=== PATIENT | male | born 1940 | race Caucasian/White ===

== ENCOUNTER 2017-10-05 13:10 | Outpatient (CLI) | payer MEDICARE, BC | END 2017-10-05 13:11 | disposition home or self-care (01) | LOC: BICCT 13:10 | PROVIDERS: ATTEND Internal Medicine Cardiovascular Disease | DX: Z91.81 History of falling (principal) | CPT/HCPCS: 70450 ==

== ENCOUNTER 2018-10-06 18:29 | Emergency (ER) | payer MEDICARE, BC ==
[2018-10-06 19:48] LABS: #Basophils 0.1 thou/uL (0.0-0.2); #Eosinphils 0.1 thou/uL (0.0-0.7); #Lymphocytes 1.6 thou/uL (1.20-3.40); #Monocytes 0.7 thou/uL (0.11-0.59); #Neutrophils 4.1 thou/uL (1.40-6.50); %Basophils 0.8 % (0.0-1.0); %Eosinophils 1.4 % (0.0-10.0); %Lymphocytes 24.8 % (21.0-51.0); %Monocytes 10.3 % (0.0-10.0); %Neutrophils 62.7 % (42.0-75.0); Hemoglobin 13.2 g/dL (14.0-18.0); Mean Corpuscular HGB CONC 33.2 g/dL (32.0-36.0); Mean Corpuscular Volume 93.3 fL (78.0-98.0); Mean Platelet Volume 7.3 fL (7.4-10.4); Platelet Count 193 thou/uL (130-400); RBC Distribution Width 12.8 % (11.5-14.5); Red Blood Cell (RBC) Count 4.24 mill/uL (4.70-6.10); White Blood Cell (WBC) Count 6.5 thou/uL (4.8-10.8)
--- NOTE | 2018-10-06 19:49 | RAD ---
AP VIEW CHEST: 10/06/18 HISTORY: Fall. AP view chest is obtained. The lungs are well aerated. No evidence of active intrathoracic disease seen. No evidence of effusion s, pneumonia or pneumothorax seen. Mild cardiomegaly seen. IMPRESSION: No evidence of acute intrathoracic abnormality seen. POS: [facility]
[2018-10-06 19:54] LABS: PTT 33.4 SEC (22.9-36.1)
--- NOTE | 2018-10-06 19:59 | RAD ---
AP VIEW PELVIS: 10/06/18 HISTORY: Fall. Hematoma to the left hip. AP view pelvis is obtained. The patient has had bilateral hip arthroplasties. No evidence of acute fractures, subluxations, or bony lesions seen. IMPRESSION: No evidence of acute pelvic fractures. POS: [facility]
--- NOTE | 2018-10-06 20:01 | CT ---
CT CERVICAL SPINE 10/06/18 HISTORY: Fall. Axial images are obtained with coronal and sagittal reconstructions. Images demonstrate extensive changes of spondylosis at C3-4, C4-5, C5-6 and C6-7. There is loss of th e normal lordotic curvature of the cervical spine at the C4 level. No evidence of acute cervical spine fracture seen. Extensive vascular calcifications seen. Heterogeneity is seen in the thyroid lobes compatible with thyroid lesions. Correlate with elective thyroid evaluation. The odontoid is unremarkable. IMPRESSION: Changes of spondylosis without evidence of acute cervical spine pathology seen. POS: [facility]
--- NOTE | 2018-10-06 20:06 | CT ---
BRAIN CT WITHOUT IV CONTRAST: 10/06/18 HISTORY: Head injury from a trip and fall. Patient is on blood thinners. COMPARISON: 05/13/08. FINDINGS: There is some bilateral atrophy and chronic white matter ischemic changes. There is some old infarct changes, encephalomalacia in the left posterior frontal and left occipitoparietal regions, evidence f or old infarct or other old insults. Minimal increased density within the sella, prior MRI demonstra lin a small pituitary mass. No focal mass or midline shift. No intra or extra-axial hemorrhage. Moder ate sinus mucosal changes within the right maxillary sinus with a probable air fluid level. IMPRESSION: Atrophy and chronic white matter ischemic changes. Old left sided infarct changes. Evidence for small pituitary mass with no significant change from prior MRI. Right maxillary sinus mucosal disease and probable air fluid level. No acute hemorrhage. POS: [facility]
--- NOTE | 2018-10-06 20:07 | RAD ---
TWO VIEWS LEFT HIP: 10/06/18 HISTORY: Fall. Left hip pain. AP and frogleg views left hip is obtained. No evidence of left hip fractures, subluxations or bony lesions seen. there does appear to be some so ft tissue swelling lateral to the left hip compatible with lateral hip and proximal femoral region he matoma. IMPRESSION: Soft tissue hematoma without evidence of acute fracture seen. POS: [facility]
[2018-10-06 20:16] LABS: ALT (SGPT) 15 U/L (8-55); AST (SGOT) 21 U/L (5-34); Albumin 4.2 g/dL (3.4-4.8); Alkaline Phosphatase 136 U/L (40-150); Anion Gap 9 mmol/L (10-20); BUN (Urea Nitrogen) 24 mg/dL (8.4-25.7); Bilirubin, Total 1.1 mg/dL (0.2-1.2); CK (CPK) 54 U/L (30-200); Calc. Creatinine Clearance 0 mL/min (70-130); Calcium 10.2 mg/dL (7.8-10.44); Carbon Dioxide 34 mmol/L (23-31); Chloride 101 mmol/L (98-107); Estimated GFR-MDRD 66; Globulin 2.8 g/dL (2.4-3.5); Glucose 107 mg/dL (83-110); Sodium 140 mmol/L (136-145)
== END 2018-10-06 20:55 | disposition home or self-care (01) ==
LOC: ERS 18:29
DX: S70.02XA Contusion of left hip, initial encounter (principal); G20 Parkinson's disease; I48.91 Unspecified atrial fibrillation; I25.2 Old myocardial infarction; Z86.73 Personal history of transient ischemic attack (TIA), and cerebral infarction without residual deficits; E78.5 Hyperlipidemia, unspecified; I10 Essential (primary) hypertension; Z79.899 Other long term (current) drug therapy; Z79.01 Long term (current) use of anticoagulants; W19.XXXA Unspecified fall, initial encounter
CPT/HCPCS: 70450; 71045; 72125; 72170; 80053; 82550; 84484; 85025; 85610; 85730; 93005

== ENCOUNTER 2018-11-24 14:07 | Emergency (ER) | payer MEDICARE, BC ==
--- NOTE | 2018-11-24 15:15 | CT ---
Exam: Head CT without contrast HISTORY: Fall, 30 minutes prior to arrival. Scalp laceration. Loss of consciousness. COMPARISON: 10/06/2018 FINDINGS: Hemorrhage: No intraparenchymal hemorrhage or extra-axial hematoma. Brain parenchyma: Stable atrophy. Stable chronic small vessel ischemic changes of the white matter. S table loss of brown-white matter differentiation and volume loss in the left occipital lobe. Stable malacic changes in the left temporal lobe. Ventricular system: Ventricles and sulci are patent and symmetric. Calvarium: Left scalp hematoma with subcutaneous air compatible with laceration. Underlying calvarium is intact. Sinuses and mastoid air cells: Persistent opacification of the right maxillary sinus. IMPRESSION: 1. No intracranial posttraumatic sequelae 2. Left scalp post traumatic changes. 3. Age-appropriate atrophy. Stable malacic changes in the left cerebrum. Stable chronic small vessel ischemic changes.
[2018-11-24] MEDS ORDERED: Adacel (T-DAP) 0.5 ML SYRINGE ONE (15:28)
== END 2018-11-24 16:48 | disposition home or self-care (01) ==
LOC: ERS 14:07
DX: S06.9X1A Unspecified intracranial injury with loss of consciousness of 30 minutes or less, initial encounter (principal); S01.01XA Laceration without foreign body of scalp, initial encounter; G20 Parkinson's disease; G30.9 Alzheimer's disease, unspecified; F02.80 Dementia in other diseases classified elsewhere, unspecified severity, without behavioral disturbance, psychotic disturbance, mood disturbance, and anxiety; I48.91 Unspecified atrial fibrillation; I25.2 Old myocardial infarction; Z86.73 Personal history of transient ischemic attack (TIA), and cerebral infarction without residual deficits; E78.5 Hyperlipidemia, unspecified; I10 Essential (primary) hypertension; Z79.899 Other long term (current) drug therapy; Z79.82 Long term (current) use of aspirin; Z79.01 Long term (current) use of anticoagulants; W19.XXXA Unspecified fall, initial encounter
CPT/HCPCS: 70450; 90715; 93005

== ENCOUNTER 2018-11-25 15:06 | Inpatient (IN) | payer MEDICARE, BC ==
[2018-11-25] MEDS ORDERED: Lidocaine 1% w/Epinephrine 1:100K 20 ML VIAL ONE (15:22)
[2018-11-25 16:35] LABS: #Lymphocytes 1.3 thou/uL (1.20-3.40); #Monocytes 0.8 thou/uL (0.11-0.59); %Basophils 0.6 % (0.0-1.0); %Eosinophils 0.6 % (0.0-10.0); %Lymphocytes 16.2 % (21.0-51.0); %Monocytes 9.1 % (0.0-10.0); %Neutrophils 73.5 % (42.0-75.0); Hemoglobin 13.7 g/dL (14.0-18.0); Mean Corpuscular HGB CONC 33.2 g/dL (32.0-36.0); Mean Corpuscular Hemoglobin 31.3 pg (27.0-31.0); Mean Corpuscular Volume 94.3 fL (78.0-98.0); Mean Platelet Volume 7.2 fL (7.4-10.4); Platelet Count 190 thou/uL (130-400); RBC Distribution Width 12.6 % (11.5-14.5); Red Blood Cell (RBC) Count 4.38 mill/uL (4.70-6.10); White Blood Cell (WBC) Count 8.2 thou/uL (4.8-10.8)
--- NOTE | 2018-11-25 16:57 | RAD ---
Portable frontal chest radiograph: 11/25/2018 COMPARISON: 10/06/2018 HISTORY: Fall, trauma, pain, altered mental status FINDINGS: Lungs are clear. Heart and mediastinal contours appear within normal limits. There is tortu osity of the descending thoracic aorta. There is degenerative change within the imaged thoracic spine. IMPRESSION: No acute findings.
[2018-11-25 17:00] LABS: ALT (SGPT) 14 U/L (8-55); AST (SGOT) 26 U/L (5-34); Albumin 4.2 g/dL (3.4-4.8); Alkaline Phosphatase 119 U/L (40-150); Anion Gap 14 mmol/L (10-20); BUN (Urea Nitrogen) 17 mg/dL (8.4-25.7); Bilirubin, Total 1.6 mg/dL (0.2-1.2); CK (CPK) 157 U/L (30-200); Calc. Creatinine Clearance 0 mL/min (70-130); Carbon Dioxide 27 mmol/L (23-31); Chloride 102 mmol/L (98-107); Estimated GFR-MDRD 80; Globulin 2.9 g/dL (2.4-3.5); Glucose 96 mg/dL (83-110); Lipase 37 U/L (8-78); Potassium 3.8 mmol/L (3.5-5.1); Protein, Total 7.1 g/dL (5.8-8.1); Sodium 139 mmol/L (136-145)
[2018-11-25 18:50] LABS: Bilirubin Negative (Negative); Blood, Urine Large (Negative); Clarity CLEAR (Clear); Glucose, Urine (Dipstick) Negative (Negative); Leukocyte Trace (Negative); Nitrite Negative (Negative); Protein, Urine (Dipstick) Negative (Neg-Trace); Specific Gravity, Urine 1.018 (1.002-1.036)
[2018-11-25 18:53] LABS: Bacteria/HPF None Seen HPF (None Seen); Hyaline Casts/LPF 0-3 HYALINE CAST LPF (0-3 Hyaline); RBC/HPF GREATER THAN 50-TNTC HPF (0-3); Squamous Epithelial None Seen HPF (0-3); WBC/HPF 0-3 HPF (0-3)
--- NOTE | 2018-11-25 19:51 | CT ---
Head CT without contrast 11/25/2018: COMPARISON: 11/24/2018 HISTORY: Injury, trauma, pain TECHNIQUE: Axial CT imaging at 5 mm intervals from vertex through skull base without contrast FINDINGS: There has been interval development of a subdural hematoma. This includes a midline compone nt within the interhemispheric fissure measuring 8 mm in greatest transverse dimension and 10 cm in AP dimension. There is also a component on the left, involving the left frontal and left temporal reg ion, measuring up to 7 mm in transverse dimension. There is associated left to right midline shift measuring approximately 5 mm. There is atherosclerotic calcification of the cavernous carotid arteries and the distal vertebral art eries. No acute osseous abnormality. Partially imaged right maxillary sinus demonstrates mucosal thickening. There is diffuse scalp swelli ng with multifocal cutaneous feroz. IMPRESSION: Acute subdural hematoma demonstrating a midline and left frontotemporal location with ass ociated left to right midline shift measuring 5 mm. Ranjana Hahn made aware at 7:48 PM 11/25/2018 Code CR
[2018-11-25] MEDS ORDERED: niCARdipine HCl 25 MG in Sodium Chloride 0.9% 250 ML 240 ML IVPB PRN (19:55)
--- NOTE | 2018-11-25 20:41 | CT ---
CT cervical spine without contrast: 11/25/2018 HISTORY: Fall, trauma, pain TECHNIQUE: Axial CT imaging at 2.5 mm intervals through the cervical spine without contrast. Coronal and sagittal reformatted imaging obtained. FINDINGS: Imaged lung apices appear unremarkable. The occipital condyles, the dens, the C1-2 articulation, craniocervical junction, the atlantoaxial in terspace, and the cervicothoracic junction demonstrate no acute findings. There is degenerative reversal of the normal cervical lordosis. Prominent degenerative endplate changes are present at mult iple levels within the cervical spine, most prominent at C4-5 and C5-6. Prominent multilevel bilateral facet and uncovertebral osteophyte formation. No prevertebral soft tissue swelling. No disp laced fracture or dislocation. Abnormal lobulated appearance of the thyroid gland with multiple hypodense nodules noted, incompletel y assessed on this exam. Follow-up thyroid ultrasound suggested. IMPRESSION: Prominent cervical spine degenerative change. No acute fracture or dislocation.
[2018-11-25] MEDS: cefTRIAXone\\ROCEPHIN 1 GM in Sodium Chloride 0.9% 100 ML IVPB SCH (20:45)
--- NOTE | 2018-11-25 21:02 | HP ---
CHIEF COMPLAINT: Fall. HISTORY OF PRESENT ILLNESS: This is a 78-year-old male with history of Parkinson disease, Alzheimer's dementia, hypertension, atrial fibrillation on low-dose aspirin, history of stroke, who presents to the emergency room for the second time in 2 days secondary to fall. All history is obtained from the patient's . She reports that over the past 4 days that he has been falling more often. He had a fall yesterday around 2:00 p.m., was brought here and required feroz to fix up a scalp laceration. With a negative CT, they were discharged to home. She reports normal activity last night, sleeping and eating, no change in his usual routine. Around 2:00 p.m. today with using his walker, he had another fall and hit the back of his head. They re-presented to the emergency room, lacerations were repaired again with feroz. The patient's denies any prior history of significant change in his balance or strength. She notes a change of the carbidopa levodopa six weeks ago, it was decreased to b.i.d. to see if this would help reduce the advancement of the Alzheimer disease. She did not notice any difference in terms of his function. She reports the last visit to the [facility] was on 11/14, he had a slow and steady gait, did not demonstrate any weakness. The clinic did request an MRI which has not been scheduled. She notes today gross hematuria that is new after the fall, the patient complaining of pressure around his eyes and headache here. At home she denies any fevers, chills, nausea, vomiting, abdominal pain, or any other change from his usual routine. The patient does have a history of atrial fibrillation and in mid October was discontinued from Coumadin secondary to gait instability. This decision was made in conjunction with his cracker off, Dr. Denis. He does remain on a low-dose aspirin. In the emergency room, the patient complained of headahe and repeat CT was performed - significant for a subdural hematoma with 5 mm midline shift, hypertension with systolic pressures in the 170s - started on a Cardene drip, and transferred to the ICU. ALLERGIES: SYNTHETIC PENICILLINS. CURRENT MEDICATIONS: Reconciled with the list provided by the patient's . 1. Memantine 14 mg daily. 2. Rivastigmine 1.5 mg b.i.d. 3. Lisinopril/hydrochlorothiazide 10/12.5 alternating one tablet every other day and half a tablet every other day. 4. Metoprolol tartrate 100 mg b.i.d. 5. Gabapentin 300 mg b.i.d. 6. Atorvastatin 40 mg daily. 7. Carbidopa/levodopa 25/100 one b.i.d. 8. AREDS2 vitamin daily. 9. Aspirin 81 mg daily. 10. Multivitamin daily. PAST MEDICAL HISTORY: 1. Parkinson disease. 2. Alzheimer disease. 3. Atrial fibrillation, on rate controller and low-dose aspirin. 4. History of LA. 5. History of stroke. 6. Hypertension. 7. Dyslipidemia. PAST SURGICAL HISTORY: 1. Bilateral hip replacements. 2. Left clavicle fracture. 3. Right knee surgery, unknown type. SOCIAL HISTORY: The patient lives with his who is his full-time caregiver and his medical power of litigation attorney, phone #[phone], she does report he is a full code. He would not want prolonged interventions, but would want initial resuscitation efforts. FAMILY HISTORY: Significant for father who of cancer and a mother who of diabetes. REVIEW OF SYSTEMS: Only notable from his for hematuria. All remaining review of systems are unobtainable from the patient. PHYSICAL EXAMINATION: VITAL SIGNS: Blood pressure 142/82, that was an hour ago, most recent was 170s/110s, pulse 64, respirations 16, sats are 100% on room air. Temp 98.2. GENERAL: He is awake, alert, follows commands. Answers few questions. He is not in apparent distress. HEENT: Pupils are equal, round, and reactive to light. His oral mucosa is pink and moist. NECK: Supple, nontender. LYMPHATICS: No palpable cervical or supraclavicular lymphadenopathy. LUNGS: Clear to auscultation. No audible wheezing, rhonchi, or rales. HEART: Normal S1, S2. Irregularly irregular. No audible murmurs. ABDOMEN: Soft, present bowel sounds. Nontender, nondistended. EXTREMITIES: No clubbing, cyanosis, or edema. SKIN: He does have scalp lacerations that have been repaired with feroz. No active bleeding. Left elbow abrasion. NEUROLOGIC: He follows commands. His cranial nerves appear intact. No focal deficits noted. He is moving arms and legs equally. PSYCH: Appears euthymic LABORATORY DATA: Labs reviewed. Today, CBC; 8.2, 13.7, 41.3, 190. Chemistry 139, 3.8, 102, 27, 17, 0.9, 296. T bilirubin 1.6, AST 26, ALT 14, alkaline phosphatase 119, total protein 7.1, albumin 4.2. BNP 275. Troponin 0.019. Ammonia is 16. TSH 0.5281. Urine shows greater than 50 red blood cells, trace leuk esterase, large blood and trace ketones. EKG shows atrial fibrillation with a rate of 60, normal axis, normal QTc of 427, abnormal R-wave progression, no ST changes noted. CT of the brain shows an acute subdural hematoma with a midline and left frontotemporal location with [id number] midline shift measuring 5 mm. Chest x-ray is personally reviewed. No acute process. CT scan without contrast from 11/24 shows no intracranial posttraumatic sequela, left scalp posttraumatic changes, age-appropriate atrophy. IMPRESSION: 1. Subdural hematoma with midline shift secondary to fall. 2. Atrial fibrillation, on low-dose aspirin. 3. Hematuria with possible urinary tract infection. 4. Hypertension, uncontrolled. 5. Parkinson disease, unknown control. 6. Alzheimer's dementia in the context of prior stroke. 7. Scalp lacerations, now repaired, and elbow abrasion. 8. Dyslipidemia. PLAN: 1. Neurosurgery consultation, start Cardene drip with a goal of systolic pressure less than 150, obtain C-spine of the neck now and repeat CT in the morning. 2. We will initiate Rocephin for concern of UTI in the context of hematuria and consult Urology. Obtain urine culture and place Banks catheter. 3. We will continue his medications for Parkinson disease. 4. We will continue his metoprolol for rate control. Monitor his blood pressure. We will hold the lisinopril/hydrochlorothiazide for because of the Cardene drip. 5. We will continue the gabapentin and statin. 6. We will discontinue the aspirin due to bleeding - both hematuria and subdural hematoma. 7. N.p.o. for now. IV fluid hydration, monitoring neurologic status per protocol. 8. DVT prophylaxis, SCDs. 9. GI prophylaxis not indicated, will initiate if prolonged n.p.o. 10. Code status is full. Surrogate decision maker is the patient's . 11. The patient is at high risk given age comorbidities and current presentation. 12. Reviewed the plan of care with the patient's . No questions or further needs at the end of evaluation. Job ID: [id number] MTDD
[2018-11-25] MEDS ORDERED: Ondansetron ODT 4 MG TAB SL PRN (21:59)
[2018-11-25] MEDS ORDERED: Ondansetron PF 4 MG/2 ML Vial IVP PRN (21:59)
[2018-11-25 22:48] LABS: INR-International Normal Ratio 1.1; PTT 28.5 SEC (22.9-36.1); Prothrombin Time 14.7 SEC (12.0-14.7)
[2018-11-25] MEDS: Sodium Chloride 0.9% 1,000 ML IV SCH (22:59)
[2018-11-25] MEDS: Metoprolol Tartrate 100 MG TAB PO SCH (23:00)
[2018-11-25] MEDS: Gabapentin 300 MG CAP PO SCH (23:01)
[2018-11-25] MEDS: Carbidopa/Levodopa 25-100 mg Tablet PO SCH (23:01)
[2018-11-25] MEDS: Atorvastatin Calcium 40 MG TAB PO SCH (23:01)
--- NOTE | 2018-11-26 00:49 | CON ---
DATE OF CONSULTATION: 11/25/2018 This is Ricky Pichardo PA-C dictating a report for Jackson Burch MD. This is a 50-minute initial patient evaluation of which greater than 50% of the exam was spent counseling and coordinating the patient's care. Remainder of the exam was spent in review of the patient's medical records and formulation of treatment plan, as well as review of appropriate imaging studies. CHIEF COMPLAINT: Status post increased falls with fall seen in left frontotemporal subdural hematoma. HISTORY OF PRESENT ILLNESS: Mr. Hassan, who goes by "skip," presents for the above complaints with his family. The patient has a history of Parkinson's and Alzheimer disease and has had multiple falls over the past 4 days. has noticed overall generalized decline in the patient's cognition, as well as some weakness especially apparent over the last 4 days. Recently, his levodopa and carbidopa was changed by his primary care provider. There was concern of progression of his Alzheimer's. The patient was previously on Coumadin, but was taken off roughly 2 to 3 weeks ago by his . He has a history of MS in 1999 without stents, CVA in 2009, and atrial fibrillation. Currently, he is only blood thinner, 81 mg aspirin. The patient was actually seen in the ER yesterday and head CT was obtained that was negative. However, review of patient's head CT from today shows subdural hematoma along the falx with slight amount of midline shift, as well as a frontotemporal left-sided subdural hematoma without significant mass effect or causing any type of shift. The patient's cervical spine CT is negative for fracture. PHYSICAL EXAMINATION: The patient is awake, alert, and appropriate. He is confused, but appears to be at his neurologic baseline according to the patient's . His speech is clear and coherent. He is able to tell me that he believes the year is 2019 and he believes the day of the week is Tuesday. He is unable to tell me where he is. He is able to correctly identify a pen and define its purpose, but is unable to define the definition of an island. He follows commands equally in all 4 extremities and appears to have good strength in all the extremities. He has no complaints of neck pain nor any tenderness to palpation of the cervical spine. His pupils are equal, round, and reactive bilaterally. IMPRESSION AND DIAGNOSIS: Status post multiple falls on 81 mg aspirin, previously on Coumadin with small fall seen and left subdural hematoma. PLAN: At this time, our medical colleagues have admitted the patient as the patient also has urinary tract infection, which may also be contributing to some of the delirium as well as increased falls. From a neurosurgical standpoint, the patient does require surgery, however, would like him to be n.p.o. at this time. We will plan to repeat his head CT in the morning, sooner should symptoms dictate. I would like his systolic blood pressure to remain less than 150. His head of bed elevated at 30 degrees. He should be on bed rest. We will order q.1 hour neuro checks. Should he be stable as well as his CT scan be stable, he will likely meet criteria for transition out of the ICU tomorrow. Nonetheless, we will follow up on his repeat scans and closely follow his neurologic exam. Please call with any changes or questions. Job ID: [id number]
--- NOTE | 2018-11-26 01:41 | CON ---
DATE OF CONSULTATION: 11/25/2018 REASON FOR CONSULTATION: Gross hematuria. Information obtained primarily from chart. The patient not able to provide reliable information and also from the ICU nurse. HISTORY OF PRESENT ILLNESS: Mr. Hassan is a 78-year-old gentleman admitted to the hospital for probable subdural hematoma. He has been having recent falls several times over the last several days. He has had two trips to the ER in the last three days as a result of falls. The most recent one has resulted in a subdural hematoma noted on CT scan. has also stated that he has some pink-tinged urine since his most recent fall. There is no prior urologic history. She did not give any prior history of stone disease or prostate problems. He does not have a catheter in place at this time. MEDICATIONS: Prior to admission, 1. Vitamins. 2. Aspirin. 3. Carbidopa/levodopa. 4. Atorvastatin. 5. Gabapentin. 6. Metoprolol. 7. Lisinopril/hydrochlorothiazide. 8. Rivastigmine. PAST MEDICAL HISTORY: 1. Parkinson disease. 2. Alzheimer disease. 3. Atrial fibrillation. 4. CVAs. 5. Hypertension. 6. Dyslipidemia. PAST SURGICAL HISTORY: Include, 1. Bilateral hip replacement. 2. Left clavicle fracture repair. 3. Right knee surgery. SOCIAL HISTORY: He lives at home and is cared for by his . FAMILY HISTORY: Noncontributory. REVIEW OF SYSTEMS: Not obtainable from the patient. PHYSICAL EXAMINATION: GENERAL: He is awake and alert. He is in no distress at this time. VITAL SIGNS: Most recent vital signs; blood pressure 128/97, pulse 76, respiratory rate 16, and O2 saturation 99%. CHEST: Clear to auscultation. CARDIOVASCULAR: Regular rate and rhythm. ABDOMEN: Soft, nontender. No palpable masses. Liver and spleen, not palpable. No abdominal tenderness noted. : No evidence of trauma. EXTREMITIES: No edema. LABORATORY DATA: Hemoglobin 13.7 and hematocrit 41.3. Urinalysis greater than 50 rbc's. Chemistry; creatinine is 0.92. IMPRESSION: Mr. Hassan is a 78-year-old gentleman, who has had multiple falls and recently developed some gross hematuria since a recent fall. He has no prior urologic history. He is not on significant anticoagulation at this time, only aspirin. He has not had any urinary tract imaging. We will obtain culture, cytology, and renal ultrasound. If the hematuria persists and cultures are negative, he will require endoscopic evaluation by cystoscopy. This can be done on an outpatient basis. Job ID: [id number] [facility]
[2018-11-26 06:17] LABS: #Eosinphils 0.1 thou/uL (0.0-0.7); #Lymphocytes 1.4 thou/uL (1.20-3.40); #Neutrophils 7.4 thou/uL (1.40-6.50); %Basophils 0.2 % (0.0-1.0); %Eosinophils 0.6 % (0.0-10.0); %Lymphocytes 13.9 % (21.0-51.0); %Neutrophils 75.2 % (42.0-75.0); Hemoglobin 12.3 g/dL (14.0-18.0); Mean Corpuscular HGB CONC 34.1 g/dL (32.0-36.0); Mean Corpuscular Hemoglobin 31.6 pg (27.0-31.0); Mean Corpuscular Volume 92.5 fL (78.0-98.0); Mean Platelet Volume 7.5 fL (7.4-10.4); Platelet Count 174 thou/uL (130-400); RBC Distribution Width 12.3 % (11.5-14.5); Red Blood Cell (RBC) Count 3.89 mill/uL (4.70-6.10); White Blood Cell (WBC) Count 9.8 thou/uL (4.8-10.8)
[2018-11-26 06:35] LABS: Anion Gap 10 mmol/L (10-20); BUN (Urea Nitrogen) 14 mg/dL (8.4-25.7); Calc. Creatinine Clearance 92 mL/min (70-130); Calcium 9.5 mg/dL (7.8-10.44); Carbon Dioxide 30 mmol/L (23-31); Chloride 100 mmol/L (98-107); Estimated GFR-MDRD Greater than 90; Glucose 110 mg/dL (83-110); Potassium 3.4 mmol/L (3.5-5.1); Sodium 137 mmol/L (136-145)
--- NOTE | 2018-11-26 08:01 | PDOC.PN ---
- Subjective Encounter Start Date: 11/26/18 (f/u subdural hematoma) Encounter Start Time: 07:59 Subjective: No overnight events, pt without complaints. Repeat -: CT scan performed this morning. Cardene turned off as bp's were -: within range - Objective Resuscitation Status - Order Detail: 11/25/18 19:55 Resuscitation Status Routine Resuscitation Status: FULL: Full Resuscitation Discussed with: patient's Vital Signs & Weight: Vital Signs (12 hours) Temp Pulse Ox 11/26/18 05:00 98.2 F 11/25/18 22:00 98.0 F 98 Weight Weight 161 lb 9.581 oz Most Recent Monitor Data Heart Rate from ECG 77 NIBP 131/86 NIBP BP-Mean 101 Respiration from ECG 17 SpO2 99 I&O: 11/25/18 11/26/18 11/27/18 06:59 06:59 06:59 Intake Total 558 Output Total 675 Balance -117 Result Diagrams: 11/26/18 05:43 11/26/18 05:43 EKG Reviewed by me: Yes (a fib 60-70's) Phys Exam - Physical Examination Constitutional: NAD Respiratory: no wheezing, no rales, no rhonchi, clear to auscultation bilateral Cardiovascular: no significant murmur, irregular Gastrointestinal: soft, non-tender, no distention, positive bowel sounds Musculoskeletal: no edema movement of arms and legs c/w yesterday's exam, slight left sided facial drooping Psychiatric: normal affect Dx/Plan (1) Subdural hematoma Code(s): S06.5X9A - TRAUM SUBDR HEM W LOC OF UNSP DURATION, INIT Status: Acute (2) Hypertension Code(s): I10 - ESSENTIAL (PRIMARY) HYPERTENSION Status: Chronic Qualifiers: Hypertension type: essential hypertension Qualified Code(s): I10 - Essential (primary) hypertension (3) Parkinsons disease Code(s): G20 - PARKINSON'S DISEASE Status: Chronic (4) UTI (urinary tract infection) Status: Acute Qualifiers: Urinary tract infection type: acute cystitis Hematuria presence: with hematuria Qualified Code(s): N30.01 - Acute cystitis with hematuria (5) Alzheimer disease Code(s): G30.9 - ALZHEIMER'S DISEASE, UNSPECIFIED; F02.80 - DEMENTIA IN OTH DISEASES CLASSD ELSWHR W/O BEHAVRL DISTURB Status: Acute Qualifiers: Alzheimer's disease onset: unspecified onset Dementia behavioral disturbance: with behavioral disturbance Qualified Code(s): G30.9 - Alzheimer' s disease, unspecified; F02.81 - Dementia in other diseases classified elsewhere with behavioral disturbance (6) Atrial fibrillation Code(s): I48.91 - UNSPECIFIED ATRIAL FIBRILLATION Status: Chronic (7) Anemia Code(s): D64.9 - ANEMIA, UNSPECIFIED Status: Acute - Plan * Hemodynamically normal - in ICU for close monitoring * Appreciate NS consult - repeat CT performed, pending read. Anticipate pt can be transferred to Stroke floor after cleared by NS * Appreciate Urology consult - renal US ordered, urine culture pending, and on Rocephin for possible UTI * Pt will require pt/ot/speech, and Neurology consult placed per hospital protocol with subdural hematoma * resume lisinopril, continue metoprolol. hold hctz - additional home med. * continue home memory/parkinsons meds * * anemia - mild and likely secondary to both gross hematuria and bleeding associated with 2 scalp lacerations (both repaired in ER - on and 25 November) * * dvt prophy - scd's * gi prophy - not indicated * code status full * * pt remains at high risk in current condition.
--- NOTE | 2018-11-26 08:12 | CT ---
HEAD CT NONCONTRAST: COMPARISON: Previous day. INDICATION: Intracranial hemorrhage, followup. FINDINGS: Left-sided subdural hematoma is stable at 6 mm in thickness. Subdural hematoma along the interhemisp heric falx is also stable at 7 mm. Evidence of bilateral scalp injury remains. Minimal hyperdensity extending along the tentorium cerebelli may relate to extension of a subdural hematoma. Mild volume of extraaxial hemorrhage overlying the anterior pole of the left temporal lobe is grossly stable. IMPRESSION: No significant interval change with regard to multifocal intracranial, extraaxial hemorrhage. The pr eviously described 4 mm of midline shift has reduced, approximately 2 mm, currently. POS: [facility]
[2018-11-26] MEDS ORDERED: Prevnar 13-Val Conj/PF 0.5 ML SYRINGE IM ONE (09:00)
[2018-11-26] MEDS: Gabapentin 300 MG CAP PO SCH ×2 (09:14→20:55)
[2018-11-26] MEDS: Metoprolol Tartrate 100 MG TAB PO SCH ×2 (09:14→20:55)
[2018-11-26] MEDS: Carbidopa/Levodopa 25-100 mg Tablet PO SCH ×2 (09:14→20:55)
[2018-11-26] MEDS: Lisinopril 10 MG TAB PO SCH (09:14)
--- NOTE | 2018-11-26 09:27 | CON ---
DATE OF CONSULTATION: HISTORY OF PRESENT ILLNESS: Samy Hassan is a 78-year-old gentleman demented, Parkinson's disease, multiple falls. He had an open laceration. said he fell yesterday. This has 4 feroz. At home again, lacerated, reopened, re-fell, large blood clot, he was brought to the ER. History is obtained from the 's information, who states that he has baseline dementia Parkinson's disease, hypertension. PAST SURGICAL HISTORY: Bilateral hip surgeries, left clavicle surgery, right knee surgery. MEDICATIONS: Include, 1. Coumadin 2.5. 2. Exelon 1.5. 3. Lopressor 100 twice a day. 4. Memantine two tablets. 5. Lisinopril. 6. Neurontin 300. 7. Levodopa-carbidopa. 8. Atrovent. 9. Lipitor. 10. Aspirin. ALLERGIES: PENICILLIN. REVIEW OF SYSTEMS: Pertinent for previous headache. CT scan showed old infarct plus some hemorrhage. Small pituitary mass. TOBACCO: None. ALCOHOL: None. SOCIAL AND FAMILY HISTORY: Unremarkable. PHYSICAL EXAMINATION: GENERAL: He is in no distress. He is on low-dose Cardene drip. VITAL SIGNS: Blood pressure 160/90, temperature 97, pulse 80, respiratory rate , saturations are 100%. CHEST: No wheezing, crackles. CARDIAC: Normal S1, S2. No gallops. ABDOMEN: No masses. LABORATORY DATA: White count 9000, H and H 12 and 36, platelet count normal. His lytes are normal. BNP is 275. Urine shows RBCs. His CT brain last night as noted, showed multifocal intracranial and extracranial hemorrhage, stable from last night. IMPRESSION: 1. History of dementia and Parkinson's disease with multiple falls with traumatic intracerebral hemorrhage. 2. Hematuria, possible urinary tract infection. 3. History of hypertension. Pulmonary/Critical Care will follow in the ICU. Input from Neurosurgery regarding ongoing treatment and care. We will discuss with the when she arrives. Consultation note, 70 minutes, 50% direct patient care. Job ID: [id number]
--- NOTE | 2018-11-26 10:48 | CON ---
DATE OF CONSULTATION: 11/26/2018 CONSULTING PHYSICIAN: Hospitalist Service. IMPRESSION: 1. Parkinson disease with fairly rapid onset of dementia, suggesting a possibility of Lewy body dementia. 2. History of atrial fibrillation and prior stroke. 3. Subdural hematoma secondary to head trauma. PLAN: 1. MRI of the brain to rule out an acute ischemic event. 2. Continue aspirin. 3. Continue current Parkinson medications. 4. Probable need to transfer to rehab once Neurosurgery clear him. HISTORY OF PRESENT ILLNESS: Mr. Hassan is a 78-year-old man, who is a prior patient of Dr. Portillo. He most recently had been seen by the [facility]. His reports that his Parkinson symptoms started about 2 years ago. Over the last few months, he has noticed that his cognitive impairment has significantly worsened. He has some delusional thoughts, but no hallucinations. He has become more unsteady on his feet and had several falls over the last month. He was seen on Tuesday after a fall and a CAT scan reportedly was unremarkable. He had another fall yesterday and had a followup CT, which showed evidence of a subdural hematoma on the left and in the midline as well. He has been admitted for further evaluation. PAST MEDICAL HISTORY: Atrial fibrillation with prior stroke resulting in expressive aphasia. PAST SURGICAL HISTORY: Bilateral hip replacements. FAMILY HISTORY: Noncontributory. MEDICATIONS: Medication list was reviewed. ALLERGIES: PENICILLIN. SOCIAL HISTORY: He is . Does not smoke or drink. REVIEW OF SYSTEMS: Ten system review of systems is otherwise negative. PHYSICAL EXAMINATION: VITAL SIGNS: Blood pressure 144/87, pulse 88 and in regular rhythm, respirations 16, and saturation 97%. HEENT: Pupils are equal and reactive. Conjunctivae are clear. Oropharynx clear. NECK: Supple. No lymphadenopathy. EXTREMITIES: No cyanosis or edema. NEUROLOGIC: He was alert and cooperative. He follow commands reasonably well. His speech was a bit monotone but fluent. Cranial nerves were intact. Motor exam showed good strength bilaterally. Tone was only minimally increased with some cogwheel rigidity. He had a rest tremor on the right. Rapid alternating movements were mildly slowed at most. Sensation was intact to touch. Gait was not tested. LABORATORY DATA: EKG shows atrial fibrillation. SUMMARY: Elderly gentleman with fairly recent diagnosis of Parkinson's that has deteriorated more rapidly than would be expected. His review of CT suggest the possibility of some prior ischemic injury and a question of whether there might have been a new ischemic event contributing to his falls remains unknown at this point. Also review his MRI and continue his current treatment. Job ID: [id number]
--- NOTE | 2018-11-26 12:07 | PRG ---
DATE OF SERVICE: 11/26/2018 This is a 30-minute initial hospital visit note, in which 30 minutes were spent reviewing the imaging record, evaluation, examination of the patient, formulation of plan. Greater than 50% of the time was spent in counseling on Samy Hassan. Mr. Hassan is a 78-year-old male with Parkinson's. He has had recent falls and fell and developed a left-sided frontotemporal convexity acute on subacute subdural hematoma. He is on 81 mg of aspirin. His baseline is somewhat confused. Although while he has symptoms of Parkinson disease, he moves all extremities to command. This morning's head CT is stable. We will plan transfer to the ICU, holding his aspirin and followup head CT in two weeks. Job ID: [id number]
--- NOTE | 2018-11-26 12:43 | MRI ---
PRE AND POSTCONTRAST ENHANCED MRI IMAGES BRAIN: DATE: 11/26/2018. COMPARISON: Comparison made to a previous CT from 11/26/2018. FINDINGS: Bilateral scalp susceptibility artifact seen from feroz. There are bilateral subdural hematomas in the right parietotemporal region as well as larger area in the left frontal, temporal and left parietal region. The left subdural collection is larger than right and appears to be acute. Small right parafalcine subdural collection is also present. There is diffuse cortical atrophy and deep white matter ischemic changes. No evidence of diffusion restriction seen to suggest cytotoxic edema. The minimally noted left to right shift is not significantly changed. No evidence of hydrocephalus seen. IMPRESSION: Bilateral acute subdural hematomas with left greater than right and small right parafalcine subdural hematoma. Transcribed Date/Time: 11/26/2018 12:54 PM
[2018-11-26] MEDS: Rivastigmine 1.5 MG CAP PO SCH ×2 (13:35→17:33)
[2018-11-26] MEDS: Sodium Chloride 0.9% 1,000 ML IV SCH (15:12)
--- NOTE | 2018-11-26 15:42 | ULT ---
RENAL ULTRASOUND: HISTORY: Hematuria. FINDINGS: Multiple longitudinal and transverse images of the kidneys and bladder are obtained using a MultiHert z curvilinear transducer. Real-time and color flow images obtained. The right and left kidneys are visualized. Right kidney measures 8.9 and left kidney 8.4 cm from pole to pole. This represents some renal cortical thinning and atrophy. No evidence of hydronephrosis seen. Both ureteral jets are visualized. The does appear to be some urinary bladder diverticulum. No significant bladder mass is seen. The prostate gland is prominent with some prostatic calcificatio ns. IMPRESSION: Bilateral renal atrophy with no evidence of hydronephrosis. Transcribed Date/Time: 11/26/2018 3:47 PM
--- NOTE | 2018-11-26 17:13 | PRG ---
DATE OF SERVICE: 11/26/2018 SUBJECTIVE: The patient is awake and alert. He is disoriented. OBJECTIVE: VITAL SIGNS: Blood pressure 118/89, pulse 79, respiratory rate 17. ABDOMEN: Soft, nontender. No palpable masses. LABORATORY AND DIAGNOSTIC DATA: Hemoglobin 12.3, hematocrit 36.0. Renal ultrasound, no stones or hydronephrosis or masses noted. Bladder scan residual approximately 50 mL. IMPRESSION: Mr. Hassan is a 78-year-old gentleman, who has subdural hematoma after a fall. He is also noted to have some mild gross hematuria during this admission. He has no prior urologic history. The hematuria has resolved. He has had no blood in the urine for the last 24 hours. Renal ultrasound demonstrates no upper urinary tract lesions or stones or hydronephrosis. He is emptying his bladder well, was determined by postvoid residual. Urine culture has no growth at 12 hours. It is likely the hematuria was result of trauma with this fall. It has resolved at this time and no further workup will be necessary unless the hematuria recurs. RECOMMENDATION: No further recommendations at this time. Job ID: [id number]
[2018-11-26] MEDS: cefTRIAXone\\ROCEPHIN 1 GM in Sodium Chloride 0.9% 100 ML IVPB SCH (20:54)
[2018-11-26] MEDS: Atorvastatin Calcium 40 MG TAB PO SCH (20:55)
[2018-11-26] MEDS ORDERED: niCARdipine HCl 25 MG in Sodium Chloride 0.9% 250 ML 240 ML IVPB SCH (21:00)
--- NOTE | 2018-11-26 21:03 | PDOC.EVN ---
Event Note - Event Note Event Note: Reviewed bp's from the past 12 hours and a few are greater than 150 systolic - placed a new order for cardene and request to restart it if bp's > 150 systolic.
[2018-11-27 05:07] LABS: #Lymphocytes 1.6 thou/uL (1.20-3.40); #Monocytes 1.3 thou/uL (0.11-0.59); #Neutrophils 5.8 thou/uL (1.40-6.50); %Basophils 0.1 % (0.0-1.0); %Eosinophils 0.4 % (0.0-10.0); %Lymphocytes 18.3 % (21.0-51.0); %Monocytes 14.8 % (0.0-10.0); %Neutrophils 66.4 % (42.0-75.0); Hemoglobin 12.5 g/dL (14.0-18.0); Mean Corpuscular HGB CONC 34.2 g/dL (32.0-36.0); Mean Corpuscular Hemoglobin 31.5 pg (27.0-31.0); Mean Corpuscular Volume 92.1 fL (78.0-98.0); Mean Platelet Volume 7.5 fL (7.4-10.4); Platelet Count 175 thou/uL (130-400); RBC Distribution Width 12.3 % (11.5-14.5); Red Blood Cell (RBC) Count 3.96 mill/uL (4.70-6.10); White Blood Cell (WBC) Count 8.8 thou/uL (4.8-10.8)
[2018-11-27 05:25] LABS: ALT (SGPT) 7 U/L (8-55); AST (SGOT) 39 U/L (5-34); Albumin 3.8 g/dL (3.4-4.8); Alkaline Phosphatase 101 U/L (40-150); Anion Gap 14 mmol/L (10-20); BUN (Urea Nitrogen) 12 mg/dL (8.4-25.7); Bilirubin, Total 2.2 mg/dL (0.2-1.2); Calc. Creatinine Clearance 97 mL/min (70-130); Calcium 9.6 mg/dL (7.8-10.44); Carbon Dioxide 27 mmol/L (23-31); Chloride 103 mmol/L (98-107); Estimated GFR-MDRD Greater than 90; Globulin 2.7 g/dL (2.4-3.5); Glucose 87 mg/dL (83-110); Protein, Total 6.5 g/dL (5.8-8.1); Sodium 141 mmol/L (136-145)
[2018-11-27] MEDS: Carbidopa/Levodopa 25-100 mg Tablet PO SCH ×2 (09:11→20:09)
[2018-11-27] MEDS: Metoprolol Tartrate 100 MG TAB PO SCH ×2 (09:11→20:09)
[2018-11-27] MEDS: Rivastigmine 1.5 MG CAP PO SCH ×2 (09:11→18:51)
[2018-11-27] MEDS: Lisinopril 10 MG TAB PO SCH (09:11)
[2018-11-27] MEDS: Gabapentin 300 MG CAP PO SCH ×2 (09:11→20:09)
--- NOTE | 2018-11-27 09:44 | PRG ---
DATE OF SERVICE: 11/27/2018 SUBJECTIVE: A 78-year-old gentleman remains encephalopathic, but in no respiratory distress. OBJECTIVE: VITAL SIGNS: Blood pressure 115/68, saturations are 98%, pulse 80, respiratory rate 18. CHEST: No wheezing. CARDIAC: Normal S1 and S2. No gallops. ABDOMEN: No masses. IMPRESSION: 1. Status post fall with subdural intracerebral hemorrhage. 2. History of Parkinson disease. PLAN: The patient remains encephalopathic. Remains in the ICU on empiric antibiotics and Cardene drip. We will follow while in the ICU. Job ID: [id number]
--- NOTE | 2018-11-27 12:04 | PDOC.PN ---
- Subjective Encounter Start Date: 11/27/18 Encounter Start Time: 11:20 Subjective: Patient finally sleeping for the past hour. Was delirious and very agitated -: all yesterday, very disturbing to his at the bedside. She states he -: would never want to be like that again. Asking for sedation if needed. - Objective Resuscitation Status - Order Detail: 11/25/18 19:55 Resuscitation Status Routine Resuscitation Status: FULL: Full Resuscitation Discussed with: patient's MAR Reviewed: Yes Vital Signs & Weight: Vital Signs (12 hours) Temp BP Pulse Ox 11/27/18 09:11 150/96 H 11/27/18 08:00 98.2 F 100 11/27/18 04:00 98.4 F Weight Weight 155 lb 13.869 oz Most Recent Monitor Data Heart Rate from ECG 67 NIBP 96/64 NIBP BP-Mean 74 Respiration from ECG 19 SpO2 99 I&O: 11/26/18 11/27/18 11/28/18 06:59 06:59 06:59 Intake Total 558 707 460 Output Total 675 1155 Balance -117 -448 460 Result Diagrams: 11/27/18 04:41 11/27/18 04:41 Phys Exam - Physical Examination Constitutional: NAD HEENT: moist MMs Respiratory: no wheezing, no rales, no rhonchi Cardiovascular: RRR Gastrointestinal: soft, positive bowel sounds Musculoskeletal: no edema Neurological: non-focal Deviation from normal: sleeping, I didn't try to wake up a this time to allow some sleep Dx/Plan (1) Subdural hematoma Code(s): S06.5X9A - TRAUM SUBDR HEM W LOC OF UNSP DURATION, INIT Status: Acute Comment: Stable, improving. Transfer to stroke unit and start arranging dispo. (2) Parkinsons disease Code(s): G20 - PARKINSON'S DISEASE Status: Chronic (3) Dementia Code(s): F03.90 - UNSPECIFIED DEMENTIA WITHOUT BEHAVIORAL DISTURBANCE Status: Suspected Qualifiers: Dementia type: Lewy body dementia Comment: suspected Lewy body due to rapid progression (4) Hematuria Code(s): R31.9 - HEMATURIA, UNSPECIFIED Status: Resolved (5) UTI (urinary tract infection) Status: Ruled-out Qualifiers: Urinary tract infection type: acute cystitis Hematuria presence: with hematuria Qualified Code(s): N30.01 - Acute cystitis with hematuria Comment: urine culture without growth, only blood in urine, no bacteria or WBC (6) Hypertension Code(s): I10 - ESSENTIAL (PRIMARY) HYPERTENSION Status: Chronic Qualifiers: Hypertension type: essential hypertension Qualified Code(s): I10 - Essential (primary) hypertension (7) Delirium due to another medical condition, acute, hyperactive Code(s): F05 - DELIRIUM DUE TO KNOWN PHYSIOLOGICAL CONDITION Status: Acute - Plan cont current plan of care, PT/OT Can likely d/c antibiotics -: Rehab eval -: I spoke with Dr. Burch and he recommended transfer to the floor, no -: ASA until repeat CT in 2 weeks in his office, ok with d/c to rehab from -: NS standpoint * . - Discharge Day Encounter end time: 11:35
[2018-11-27] MEDS ORDERED: Lorazepam 2 MG/ML VIAL SLOW IVP PRN (12:49)
[2018-11-27] MEDS: Acetaminophen 325 MG TAB PO PRN (20:09)
[2018-11-27] MEDS: Atorvastatin Calcium 40 MG TAB PO SCH (20:10)
[2018-11-28] MEDS: Lisinopril 10 MG TAB PO SCH (08:24)
[2018-11-28] MEDS: Carbidopa/Levodopa 25-100 mg Tablet PO SCH ×2 (08:24→22:25)
[2018-11-28] MEDS: Gabapentin 300 MG CAP PO SCH ×2 (08:24→22:25)
[2018-11-28] MEDS: Metoprolol Tartrate 100 MG TAB PO SCH ×2 (08:24→22:27)
[2018-11-28] MEDS: Rivastigmine 1.5 MG CAP PO SCH ×2 (08:25→16:31)
[2018-11-28] MEDS ORDERED: Potassium Chloride 20 MEQ TAB PO SCH (08:45)
--- NOTE | 2018-11-28 08:47 | PDOC.PN ---
- Subjective Encounter Start Date: 11/28/18 Encounter Start Time: 14:20 Subjective: Patient without some hallucinations and paranoid delusions with staff, -: but much less agitated. Slept well all night and multiple naps during the -: day. - Objective Resuscitation Status - Order Detail: 11/25/18 19:55 Resuscitation Status Routine Resuscitation Status: FULL: Full Resuscitation Discussed with: patient's GERARD Reviewed: Yes Vital Signs & Weight: Vital Signs (12 hours) Temp BP Pulse Ox 11/28/18 08:24 154/94 H 11/28/18 07:57 100 11/28/18 07:00 97.7 F 11/28/18 05:00 98.4 F 11/28/18 00:00 98.6 F Weight Admit Weight 155 lb Weight 150 lb 12.739 oz Most Recent Monitor Data Heart Rate from ECG 79 NIBP 154/94 NIBP BP-Mean 114 Respiration from ECG 16 SpO2 100 I&O: 11/27/18 11/28/18 11/29/18 06:59 06:59 06:59 Intake Total 707 700 400 Output Total 1155 400 0 Balance -448 300 400 Result Diagrams: 11/27/18 04:41 11/27/18 04:41 Phys Exam - Physical Examination Constitutional: NAD Sleeping currently HEENT: moist MMs Respiratory: no wheezing, no rales, no rhonchi Cardiovascular: RRR, no significant murmur Gastrointestinal: soft, positive bowel sounds Neurological: non-focal Deviation from normal: sleeping Dx/Plan (1) Subdural hematoma Code(s): S06.5X9A - TRAUM SUBDR HEM W LOC OF UNSP DURATION, INIT Status: Acute Comment: Stable, improving. Transfer to stroke unit and start arranging dispo. (2) Parkinsons disease Code(s): G20 - PARKINSON'S DISEASE Status: Chronic (3) Dementia Code(s): F03.90 - UNSPECIFIED DEMENTIA WITHOUT BEHAVIORAL DISTURBANCE Status: Suspected Qualifiers: Dementia type: Lewy body dementia Comment: suspected Lewy body due to rapid progression (4) Hematuria Code(s): R31.9 - HEMATURIA, UNSPECIFIED Status: Resolved (5) UTI (urinary tract infection) Status: Ruled-out Qualifiers: Urinary tract infection type: acute cystitis Hematuria presence: with hematuria Qualified Code(s): N30.01 - Acute cystitis with hematuria Comment: urine culture without growth, only blood in urine, no bacteria or WBC (6) Hypertension Code(s): I10 - ESSENTIAL (PRIMARY) HYPERTENSION Status: Chronic Qualifiers: Hypertension type: essential hypertension Qualified Code(s): I10 - Essential (primary) hypertension (7) Delirium due to another medical condition, acute, hyperactive Code(s): F05 - DELIRIUM DUE TO KNOWN PHYSIOLOGICAL CONDITION Status: Acute (8) Hypokalemia Code(s): E87.6 - HYPOKALEMIA Status: Acute Comment: replete orally and recheck - Plan cont current plan of care, PT/OT placement * . - Discharge Day Encounter end time: 14:30
--- NOTE | 2018-11-28 09:32 | PRG ---
DATE OF SERVICE: 11/28/2018 SUBJECTIVE: Samy Hassan this morning sitting on the side of the bed, still having some tremors. OBJECTIVE: VITAL SIGNS: Pulse 84, blood pressure 150/95, sats are 98%, respirations 20. GENERAL: Appears appropriate. Denies any pain or discomfort. CHEST: Decreased breath sounds. No wheezing. CARDIAC: Normal S1 and S2. No gallops. ABDOMEN: No masses. IMPRESSION: Status post multiple falls with intracerebral hemorrhage Parkinson disease. PLAN: The plan is to transfer to the stroke unit. Supportive care. Pulmonary follow while in the ICU. Job ID: [id number] MTDD
[2018-11-28] MEDS: Acetaminophen 325 MG TAB PO PRN (11:30)
[2018-11-28] MEDS: Atorvastatin Calcium 40 MG TAB PO SCH (22:25)
[2018-11-29] MEDS ORDERED: hydrALAZINE 20 MG/ML VIAL SLOW IVP PRN (00:43)
[2018-11-29 05:16] LABS: #Basophils 0.1 thou/uL (0.0-0.2); #Eosinphils 0.1 thou/uL (0.0-0.7); #Lymphocytes 1.3 thou/uL (1.20-3.40); #Monocytes 0.7 thou/uL (0.11-0.59); #Neutrophils 4.9 thou/uL (1.40-6.50); %Basophils 0.7 % (0.0-1.0); %Eosinophils 1.4 % (0.0-10.0); %Lymphocytes 18.5 % (21.0-51.0); %Monocytes 10.3 % (0.0-10.0); %Neutrophils 69.1 % (42.0-75.0); Hemoglobin 12.3 g/dL (14.0-18.0); Mean Corpuscular HGB CONC 32.9 g/dL (32.0-36.0); Mean Corpuscular Hemoglobin 30.6 pg (27.0-31.0); Mean Corpuscular Volume 93.2 fL (78.0-98.0); Mean Platelet Volume 7.5 fL (7.4-10.4); Platelet Count 194 thou/uL (130-400); RBC Distribution Width 12.3 % (11.5-14.5); Red Blood Cell (RBC) Count 4.01 mill/uL (4.70-6.10); White Blood Cell (WBC) Count 7.1 thou/uL (4.8-10.8)
[2018-11-29 05:36] LABS: Anion Gap 13 mmol/L (10-20); BUN (Urea Nitrogen) 21 mg/dL (8.4-25.7); Calc. Creatinine Clearance 98 mL/min (70-130); Calcium 9.3 mg/dL (7.8-10.44); Carbon Dioxide 26 mmol/L (23-31); Chloride 104 mmol/L (98-107); Estimated GFR-MDRD Greater than 90; Glucose 100 mg/dL (83-110); Magnesium 1.8 mg/dL (1.6-2.6); Potassium 3.3 mmol/L (3.5-5.1); Sodium 140 mmol/L (136-145)
--- NOTE | 2018-11-29 07:13 | PDOC.PN ---
- Subjective Encounter Start Date: 11/29/18 Encounter Start Time: 09:35 Subjective: Patient doing much better. No more agitation. Still with occ delusions. -: Ambulating some with PT. Rehab eval. - Objective Resuscitation Status - Order Detail: 11/25/18 19:55 Resuscitation Status Routine Resuscitation Status: FULL: Full Resuscitation Discussed with: patient's GERARD Reviewed: Yes Vital Signs & Weight: Vital Signs (12 hours) Temp Pulse Resp BP BP Pulse Ox 11/29/18 04:00 98.4 F 95 16 136/80 99 11/29/18 02:30 147/74 H 11/29/18 00:05 97.5 F L 98 18 159/97 H 100 11/29/18 00:00 97.5 F L 98 18 159/97 H 100 11/28/18 21:00 99 11/28/18 19:58 97.9 F 70 19 156/84 H 99 Weight Admit Weight 155 lb Weight 162 lb 9 oz Most Recent Monitor Data Heart Rate from ECG 79 NIBP 154/94 NIBP BP-Mean 114 Respiration from ECG 16 SpO2 100 I&O: 11/28/18 11/29/18 11/30/18 06:59 06:59 06:59 Intake Total 700 1500 Output Total 400 1 Balance 300 1499 Result Diagrams: 11/29/18 04:56 11/29/18 04:56 Phys Exam - Physical Examination Constitutional: NAD HEENT: moist MMs scalp with multiple lacs stapled shut, healing well Respiratory: no wheezing, no rales, no rhonchi Cardiovascular: RRR, no significant murmur Gastrointestinal: soft, positive bowel sounds Neurological: non-focal, moves all 4 limbs Deviation from normal: alert, oriented to person Dx/Plan (1) Subdural hematoma Code(s): S06.5X9A - TRAUM SUBDR HEM W LOC OF UNSP DURATION, INIT Status: Acute Comment: Stable, improving. Transfered to stroke unit and arranging dispo. (2) Parkinsons disease Code(s): G20 - PARKINSON'S DISEASE Status: Chronic (3) Dementia Code(s): F03.90 - UNSPECIFIED DEMENTIA WITHOUT BEHAVIORAL DISTURBANCE Status: Suspected Qualifiers: Dementia type: Lewy body dementia Comment: suspected Lewy body due to rapid progression (4) Hematuria Code(s): R31.9 - HEMATURIA, UNSPECIFIED Status: Resolved (5) UTI (urinary tract infection) Status: Ruled-out Qualifiers: Urinary tract infection type: acute cystitis Hematuria presence: with hematuria Qualified Code(s): N30.01 - Acute cystitis with hematuria Comment: urine culture without growth, only blood in urine, no bacteria or WBC (6) Hypertension Code(s): I10 - ESSENTIAL (PRIMARY) HYPERTENSION Status: Chronic Qualifiers: Hypertension type: essential hypertension Qualified Code(s): I10 - Essential (primary) hypertension (7) Delirium due to another medical condition, acute, hyperactive Code(s): F05 - DELIRIUM DUE TO KNOWN PHYSIOLOGICAL CONDITION Status: Acute (8) Hypokalemia Code(s): E87.6 - HYPOKALEMIA Status: Acute Comment: repleting orally and recheck - Plan cont current plan of care, PT/OT, DVT proph w/SCDs rehab placement * . - Discharge Day Encounter end time: 09:55
[2018-11-29] MEDS ORDERED: Potassium Chloride 20 MEQ TAB PO SCH (07:15)
[2018-11-29 08:02] VITALS: TEMP 97.9
[2018-11-29] MEDS: Gabapentin 300 MG CAP PO SCH (08:21)
[2018-11-29] MEDS: Rivastigmine 1.5 MG CAP PO SCH (08:21)
[2018-11-29] MEDS: Metoprolol Tartrate 100 MG TAB PO SCH (08:21)
[2018-11-29] MEDS: Carbidopa/Levodopa 25-100 mg Tablet PO SCH (08:22)
[2018-11-29] MEDS ORDERED: Lisinopril 20 MG TAB PO SCH (09:00)
--- NOTE | 2018-11-29 09:40 | PRG ---
DATE OF SERVICE: 11/29/2018 SUBJECTIVE: This morning is awake and responsive. No respiratory distress. He is transferred out of the ICU. OBJECTIVE: VITAL SIGNS: His saturations are 95% on room air, respirations 16, blood pressure 140/79, temperature 97. CHEST: No wheezing or crackles. CARDIAC: Normal S1 and S2. No gallops. ABDOMEN: No masses. LABORATORY DATA: Labs are unremarkable particularly his white count is normal. ASSESSMENT: 1. Status post fall, intracerebral hemorrhage. 2. Parkinson disease. PLAN: Disposition as per primary care physician. Pulmonary is going to follow at a distance. Call if needed. Job ID: [id number]
[2018-11-29 10:17] VITALS: BMI 20.3
[2018-11-29 12:26] VITALS: BP 128/94
--- NOTE | 2018-11-30 00:46 | DIS ---
DATE OF ADMISSION: 11/25/2018 DATE OF DISCHARGE: 11/29/2018 PRIMARY CARE PHYSICIAN: MAXX Mercado. REASON FOR ADMISSION: Fall with subdural hematoma and scalp lacerations. DISCHARGE DIAGNOSES: 1. Subdural hematoma, improving. 2. Multiple falls secondary to Parkinson disease. 3. Scalp lacerations, stable and healing well. 4. Rapidly progressive dementia, likely Lewy body disease. 5. Hematuria, resolved. 6. Hypertension. 7. Delirium, resolved. 8. Hypokalemia, improved. PROCEDURES: 1. CT of the head without contrast showing acute subdural hematoma with midline and left frontotemporal location, associated with left to right midline shift of [address] scan showing bilateral acute subdural hematomas with decrease in the midline shift only [address] of the C-spine showing prominent cervical spine disease without acute fracture or dislocation. 4. MRI of the brain showing bilateral acute subdural hematomas, left greater than right, and small right parafalcine subdural hematoma. CONSULTATIONS: 1. Neurosurgery, Dr. Burch. 2. Urology, Dr. Vasques. 3. Pulmonology, Dr. Maher. 4. Neurology, Dr. Richey. SUMMARY OF HOSPITAL COURSE: This is a 78-year-old white male with a history of Parkinson disease, rapidly progressive Alzheimer's dementia, hypertension; atrial fibrillation, on low-dose aspirin; and history of previous stroke, who presented to the emergency room a couple of different times for falls. At this time, he had multiple scalp lacerations and had a CT done without any evidence of bleed on the second visit. Repeat CT scan showed above results. The patient was admitted to the ICU. Neurosurgery was consulted. The patient's blood pressure was very closely controlled, less than 150 mmHg systolic blood pressure with a Cardene drip. He also had Neurology evaluation for his Parkinson's and Dr. Richey determined the patient likely has Lewy body dementia due to his rapid progression in some delusions and hallucinations at home. The patient's subdural hematoma improved in the hospital without any surgical intervention. He did develop some ICU psychosis with worsening of his underlying dementia and underlying psychosis that he has at home. This improved after he is able to develop a proper sleep schedule and eventually was moved to the neurology floor. The patient's blood pressures were initially controlled with Cardene, this was taken off after he was cleared by Neurosurgery and then, his blood pressure medicines were titrated up to continue controlling his blood pressure. The patient did have some initial significant hematuria and Urology was consulted. They observed the patient and he did not have any bacteria growth from his urine and urinalysis was not consistent with infection, though he was started on antibiotics, these were eventually discontinued. The patient's aspirin was held. His hematuria resolved and did not have any further intervention done for this. The patient was doing well with physical therapy and has been cleared by Neurosurgery to go to rehab. He has been accepted to [facility], is being discharged today. DISCHARGE MANAGEMENT: Discharged to [facility]. ACTIVITY: As tolerated. DIET: Healthy heart, low-sodium diet with Might[employer] t.i.d. THERAPY: Occupational, physical, and speech therapy. FOLLOWUP: Follow up with Karey Bruno in 2 to [address] Burch in [address]. No aspirin until he is cleared by Neurosurgery. DISCHARGE MEDICATIONS: 1. Acetaminophen as needed. 2. Atorvastatin 40 mg at night. 3. Sinemet 1 tablet twice a day. 4. Gabapentin 300 mg twice a day. 5. Lisinopril 20 mg daily. 6. Namenda 5 mg twice a day. 7. Metoprolol tartrate 100 mg twice a day. 8. Exelon 1.5 mg twice a day. The patient is to discontinue all aspirin and warfarin, which he had been on until Good Tuesday. TIME SPENT: Arranging the details of this discharge took 35 minutes. Job ID: [id number]
== END 2018-11-29 14:55 | DRG 86 ==
LOC: ERS 15:06 → CCU 19:55 → 2SE 11-28 10:01
PROVIDERS: ADMIT Family Medicine; ATTEND Family Medicine
PROC: 0HQ0XZZ Repair Scalp Skin, External Approach (ICD-10-PCS; principal; 2018-11-25)
DX: S06.5X0A Traumatic subdural hemorrhage without loss of consciousness, initial encounter (principal); F05 Delirium due to known physiological condition; F02.81 Dementia in other diseases classified elsewhere, unspecified severity, with behavioral disturbance; G31.83 Neurocognitive disorder with Lewy bodies; G30.9 Alzheimer's disease, unspecified; I48.91 Unspecified atrial fibrillation; E78.5 Hyperlipidemia, unspecified; I10 Essential (primary) hypertension; S01.01XA Laceration without foreign body of scalp, initial encounter; R31.0 Gross hematuria; D64.9 Anemia, unspecified; E87.6 Hypokalemia; Z86.73 Personal history of transient ischemic attack (TIA), and cerebral infarction without residual deficits; W19.XXXA Unspecified fall, initial encounter; Z88.0 Allergy status to penicillin; Z96.643 Presence of artificial hip joint, bilateral; Y92.019 Unspecified place in single-family (private) house as the place of occurrence of the external cause; Z91.81 History of falling; Z79.82 Long term (current) use of aspirin; I25.2 Old myocardial infarction; Z79.899 Other long term (current) drug therapy
CPT/HCPCS: 12002; 12004; 36415; 70450; 70553; 71045; 72125; 76770; 80048; 80053; 81003; 81015; 82140; 82550; 83690; 83735; 83880; 84443; 84484; 85025; 85610; 85730; 87086; 90471; 90715; 93005; J0360; J0696; J2001; J3490; J7050